=== PATIENT | male | born 1975 | race Caucasian/White ===

== ENCOUNTER 2019-06-07 06:01 | Emergency (ER) | payer OTHER ==
[~2019-06-07] VITALS: Ht 167.6 cm; Wt 53.2 kg
[~2019-06-07 06:01] MED LIST: AMIT150T PO; B/P MED; CYAN-27 PO; FLUD0.1T PO; GLIP5TAB10 PO; METF500T17 PO
[2019-06-07] MEDS ORDERED: OMEP20TA62 PO (06:29)
[2019-06-07] MEDS ORDERED: METF500T17 PO (06:29)
--- NOTE | 2019-06-07 06:54 | NUR ---
REPORT GIVEN TO MARIYA HINOJOSA
--- NOTE | 2019-06-07 06:58 | NUR ---
ASSUMED CARE. AWAITING XRAY AND BLOOD WORK. ARRIVED TO ER TODAY FOR A COUGH WITH CONCERN ABOUT PNA, CYST ON BACK
[2019-06-07 07:35] LABS: BASOPHILS # (AUTO) 0.05 x10^3/uL (0-0.1); BASOPHILS % (AUTO) 1 % (0-1); EOSINOPHILS # (AUTO) 0.13 x10^3/uL (0-0.4); EOSINOPHILS % (AUTO) 2 % (1-7); LYMPHOCYTES % (AUTO) 20 % (22-44); MD NO; MEAN CORPUSCULAR HEMOGLOBIN 31.4 pg (27.5-34.5); MEAN CORPUSCULAR HGB CONC 33.7 g/dL (33.2-36.2); MEAN CORPUSCULAR VOLUME 93.1 fL (81-97); MEAN PLATELET VOLUME 9.1 fL (7.4-10.4); MONOCYTES # (AUTO) 0.54 x10^3/uL (0.2-0.8); MONOCYTES % (AUTO) 8 % (2-9); NEUTROPHILS # (AUTO) 4.36 x10^3/uL (1.8-6.8); NEUTROPHILS % (AUTO) 69 % (42-75); PLATELET COUNT 252 x10^3/uL (130-400); RED BLOOD COUNT 5.23 x10^6/uL (4.38-5.82); RED CELL DISTRIBUTION WIDTH 13.2 % (9.4-14.8)
[2019-06-07 07:46] LABS: ALBUMIN 3.6 g/dL (3.4-5.0); ANION GAP 8 mmol/L (5-15); CALCIUM 8.5 mg/dL (8.5-10.1); CHLORIDE 104 mmol/L (98-107)
[2019-06-07 07:52] LABS: ALANINE AMINOTRANSFERASE 8 U/L (12-78); ALKALINE PHOSPHATASE 103 U/L (45-117); BILIRUBIN,TOTAL 0.8 mg/dL (0.2-1.0); CREATININE 0.88 mg/dL (0.7-1.3); TOTAL PROTEIN 6.9 g/dL (6.4-8.2); TROPONIN I < 0.015 ng/mL (0.000-0.045)
--- NOTE | 2019-06-07 08:17 | NUR ---
RESTING WITH EYES CLOSED, AWAITING RE-EVAL
[2019-06-07 08:18] VITALS: BP 106/70
== END 2019-06-07 09:14 | disposition home or self-care (01) ==
LOC: ED 07:09
DX: J06.9 Acute upper respiratory infection, unspecified (principal); I10 Essential (primary) hypertension; E11.9 Type 2 diabetes mellitus without complications; F17.210 Nicotine dependence, cigarettes, uncomplicated
CPT/HCPCS: 36415; 71045; 80053; 83605; 84484; 85025; 87040; 93005; 99284